=== PATIENT | male | born 1950 | race Caucasian/White ===

== ENCOUNTER 2021-03-23 08:23 | Day surgery (SDC) | payer MEDICARE, MEDICAID ==
[~2021-03-23] VITALS: Ht 160 cm; Wt 72.7 kg
[~2021-03-23 08:23] MED LIST: ASPIRIN 81 MG CHEWABLE TABLET PO ONE; DIAZEPAM 5 MG TABLET PO ONE; DiphenhydrAMINE HCL 50 MG CAPSULE PO ONE; SODIUM CHLORIDE 0.9% 1,000 ML IV SCH; SODIUM CHLORIDE 0.9% 1,000 ML ONE
[2021-03-23] MEDS ORDERED: RIVA10TA PO (08:59)
[2021-03-23] MEDS ORDERED: ISOS60TA77 PO (08:59)
[2021-03-23] MEDS ORDERED: METO25 PO (08:59)
[2021-03-23] MEDS ORDERED: LISI-894 PO (08:59)
[2021-03-23] MEDS ORDERED: CLOP75TA60 PO (08:59)
[2021-03-23] MEDS ORDERED: ATOR40TA28 PO (09:02)
[2021-03-23] MEDS ORDERED: AMLO-258 PO (09:02)
[2021-03-23] MEDS ORDERED: HYDR25TA84 PO (09:02)
[2021-03-23] MEDS ORDERED: RIVA20TA PO (09:02)
[2021-03-23] MEDS ORDERED: OMEP20 PO (09:02)
[2021-03-23] MEDS ORDERED: LIDOCAINE/PF 1% 30 ML VIAL ONE (09:53)
[2021-03-23] MEDS ORDERED: SODIUM BICARBONATE 50 MEQ/50 ML VIAL ONE (09:53)
[2021-03-23] MEDS ORDERED: IOHEXOL 300 MG/ML 50 ML VIAL ONE (09:53)
[2021-03-23] MEDS ORDERED: IOHEXOL 300 MG/ML 150 ML VIAL ONE (09:53)
[2021-03-23] MEDS ORDERED: HEPARIN SODIUM 1000 UNITS/NS 1,000 ML ONE (09:53)
[2021-03-23] MEDS ORDERED: IOHEXOL 300 MG/ML 100 ML VIAL ONE (09:55)
[2021-03-23] MEDS ORDERED: ASPIRIN 81 MG CHEWABLE TABLET ONE (09:57)
[2021-03-23] MEDS ORDERED: DIAZEPAM 5 MG TABLET ONE (09:57)
[2021-03-23] MEDS ORDERED: DiphenhydrAMINE HCL 50 MG CAPSULE ONE (09:58)
[2021-03-23 10:25] VITALS: BP 160/70
[2021-03-23] MEDS ORDERED: MIDAZOLAM HCL 2 MG/2 ML VIAL ONE ×2 (10:26→10:44)
[2021-03-23] MEDS ORDERED: FentaNYL CITRATE PF 100 MCG/2 ML VIAL ONE ×2 (10:26→10:44)
[2021-03-23] MEDS ORDERED: MIDAZOLAM HCL 2 MG/2 ML VIAL IVP ONE ×2 (10:45)
[2021-03-23] MEDS ORDERED: HEPARIN SODIUM 1000 UNITS/NS 1,000 ML IARTER ONE (10:45)
[2021-03-23] MEDS ORDERED: IOHEXOL 300 MG/ML 150 ML VIAL IARTER ONE (10:45)
[2021-03-23] MEDS ORDERED: FentaNYL CITRATE PF 100 MCG/2 ML VIAL IVP ONE ×2 (10:45)
[2021-03-23] MEDS ORDERED: LIDOCAINE 1% 30 ML/SOD BICARB 8.4% 4 ML SQ ONE (10:45)
[2021-03-23] MEDS ORDERED: TICAGRELOR 90 MG TABLET ONE (11:02)
[2021-03-23] MEDS ORDERED: TICAGRELOR 90 MG TABLET PO ONE (11:15)
[2021-03-23] MEDS ORDERED: HEPARIN SODIUM,PORCINE 5,000 UNITS/ML VIAL IVP ONE (11:15)
[2021-03-23 11:30] VITALS: BP 133/67
== END 2021-03-23 15:59 | disposition home or self-care (01) ==
LOC: CATHLAB 08:23
PROVIDERS: ATTEND Internal Medicine Interventional Cardiology
DX: I25.10 Atherosclerotic heart disease of native coronary artery without angina pectoris (principal); I10 Essential (primary) hypertension; E78.5 Hyperlipidemia, unspecified; Z95.5 Presence of coronary angioplasty implant and graft; I25.2 Old myocardial infarction; Z72.89 Other problems related to lifestyle; Z98.890 Other specified postprocedural states; Z79.01 Long term (current) use of anticoagulants; Z79.899 Other long term (current) drug therapy; I73.9 Peripheral vascular disease, unspecified; F17.210 Nicotine dependence, cigarettes, uncomplicated
CPT/HCPCS: 93005; 93458; 99152; 99153; C1760; C1874; C1887; C9600; J1644; J2250; J3010; J3490 ×2; J7030; Q9967 ×3; 92920; 92928